=== PATIENT | female | born 1950 | race Caucasian/White ===

== ENCOUNTER 2021-03-17 21:01 | Inpatient (IN) | payer MEDICARE ==
[~2021-03-17] VITALS: Ht 165.1 cm; Wt 81.6 kg
[2021-03-17] MEDS ORDERED: HALOPERIDOL LACTATE 5 MG/1 ML VIAL IM ONE (21:15)
[2021-03-17] MEDS ORDERED: diphenhydrAMINE 50 MG/1 ML VIAL IM ONE (21:15)
[2021-03-17] MEDS ORDERED: HALOPERIDOL LACTATE 5 MG/1 ML VIAL ONE (21:32)
[2021-03-17] MEDS ORDERED: diphenhydrAMINE 50 MG/1 ML VIAL ONE (21:32)
[2021-03-17] MEDS ORDERED: OMEP40CA21 PO (23:52)
[2021-03-17] MEDS ORDERED: CLON0.1T PO (23:52)
[2021-03-17] MEDS ORDERED: LOSA1TAB39 PO (23:52)
[2021-03-17] MEDS ORDERED: OXYC15TA2 PO (23:52)
[2021-03-17] MEDS ORDERED: QUET300T2 PO (23:52)
[2021-03-17] MEDS ORDERED: POTA10TA10 PO (23:52)
[2021-03-17] MEDS ORDERED: LEVO25TA9 PO (23:52)
[2021-03-17] MEDS ORDERED: FLUO20CA42 PO (23:52)
[2021-03-17] MEDS ORDERED: PANT40TA49 PO (23:52)
[2021-03-17] MEDS ORDERED: QUET100T PO (23:52)
[2021-03-17] MEDS ORDERED: [UNRECOGNIZED DRUG - OTHER] TOP (23:52)
[2021-03-17] MEDS ORDERED: OXYC10TA49 PO (23:52)
[2021-03-17] MEDS ORDERED: GABA-532 PO (23:52)
[2021-03-18] MEDS ORDERED: MAG HYDROX/AL HYDROX/SIMETH 30 ML LIQUID UDC PO PRN (00:30)
[2021-03-18] MEDS ORDERED: LORAZEPAM 1 MG TABLET PO PRN (00:30)
[2021-03-18] MEDS ORDERED: TEMAZEPAM 7.5 MG CAPSULE PO PRN (00:30)
[2021-03-18] MEDS ORDERED: MAGNESIUM HYDROXIDE 30 ML LIQUID UDC PO PRN (00:30)
[2021-03-18 00:45] VITALS: BP 145/84
[2021-03-18 09:38] VITALS: BP 146/81
[2021-03-18] MEDS ORDERED: OXYCODONE HCL 5 MG TABLET PO PRN ×2 (11:45)
[2021-03-18] MEDS: AMLODIPINE 5 MG TABLET PO SCH (12:24)
[2021-03-18 15:12] VITALS: BP 139/49
[2021-03-18] MEDS: GABAPENTIN 300 MG CAPSULE PO SCH (16:14)
[2021-03-18] MEDS ORDERED: GABAPENTIN 100 MG CAPSULE PO SCH (17:00)
[2021-03-18] MEDS ORDERED: Medication Not On Formulary EA (Oxycodone Hcl 20 MG) PO SCH (17:00)
[2021-03-18 20:30] VITALS: BP 137/79
[2021-03-18] MEDS: SERTRALINE HCL 50 MG TABLET PO SCH (20:56)
[2021-03-19] MEDS: PANTOPRAZOLE SODIUM 40 MG TABLET.DR PO SCH (06:53)
[2021-03-19] MEDS: LEVOTHYROXINE SODIUM 25 MCG TABLET PO SCH (06:53)
[2021-03-19 07:40] LABS: HEMATOCRIT 41.3 % (31.2-41.9); MEAN CORPUSCULAR HEMOGLOBIN 29.5 uug (24.7-32.8); MEAN CORPUSCULAR VOLUME 87.6 fL (75.5-95.3); PLATELET COUNT (AUTO) 351 K/uL (179-408)
[2021-03-19 07:49] VITALS: BP 176/76
[2021-03-19] MEDS: AMLODIPINE 5 MG TABLET PO SCH (08:06)
[2021-03-19 08:07] LABS: THYROID STIMULATING HORMONE 1.49 mIU/mL (0.358-3.740)
[2021-03-19] MEDS: SERTRALINE HCL 50 MG TABLET PO SCH (08:07)
[2021-03-19] MEDS: HYDROCHLOROTHIAZIDE 25 MG TABLET PO SCH (08:07)
[2021-03-19] MEDS: GABAPENTIN 300 MG CAPSULE PO SCH ×2 (08:07→16:13)
[2021-03-19] MEDS: LOSARTAN POTASSIUM 50 MG TABLET PO SCH (08:07)
[2021-03-19 08:22] LABS: BILIRUBIN,TOTAL 0.7 mg/dL (0.2-1.0); CREATININE 0.6 mg/dL (0.6-1.3); MAGNESIUM 1.6 mg/dL (1.8-2.4); POTASSIUM 3.1 mmol/L (3.5-5.1); TOTAL PROTEIN, SERUM 8.2 g/dL (6.4-8.2)
[2021-03-19 08:50] VITALS: BP 137/65
[2021-03-19] MEDS ORDERED: Medication Not On Formulary EA (Losartan/Hydrochlorothiazide (Losartan-Hctz 100-25 Mg Ta PO SCH (09:00)
[2021-03-19] MEDS ORDERED: Z GUARD REMEDY PASTE 57 GM TUBE TOP PRN (12:00)
[2021-03-19] MEDS ORDERED: POTASSIUM CHLORIDE 20 MEQ TAB.PRT.SR PO ONE (12:00)
[2021-03-19] MEDS ORDERED: MAGNESIUM OXIDE 400 MG TABLET PO ONE (12:00)
[2021-03-19 16:24] VITALS: BP 159/71
[2021-03-19 17:00] VITALS: BP 141/69
[2021-03-19] MEDS ORDERED: ONDANSETRON HCL 4 MG TABLET PO PRN (21:15)
[2021-03-19] MEDS: ATORVASTATIN 20 MG TABLET PO SCH (21:21)
[2021-03-20 07:30] VITALS: BP 156/83
[2021-03-20] MEDS: SERTRALINE HCL 50 MG TABLET PO SCH (09:40)
[2021-03-20] MEDS: AMLODIPINE 5 MG TABLET PO SCH (09:43)
[2021-03-20] MEDS: GABAPENTIN 300 MG CAPSULE PO SCH ×2 (09:44→16:43)
[2021-03-20] MEDS: LOSARTAN POTASSIUM 50 MG TABLET PO SCH (09:47)
[2021-03-20] MEDS: LEVOTHYROXINE SODIUM 25 MCG TABLET PO SCH (09:52)
[2021-03-20] MEDS: PANTOPRAZOLE SODIUM 40 MG TABLET.DR PO SCH (09:52)
[2021-03-20] MEDS: HYDROCHLOROTHIAZIDE 25 MG TABLET PO SCH (09:57)
[2021-03-20 16:00] VITALS: BP 167/85
[2021-03-20] MEDS ORDERED: IPRATROPIUM BROMIDE 12.9 GM INHALER INH SCH (16:00)
[2021-03-20] MEDS: ALBUTEROL SULFATE 2.5 MG/3 ML NEBU NEB PRN ×2 (16:14→16:17)
[2021-03-20] MEDS ORDERED: IPRATROPIUM BROMIDE 0.5 MG/2.5 ML NEBU NEB PRN (16:15)
[2021-03-20] MEDS: ACETAMINOPHEN 325 MG TABLET PO PRN (19:30)
[2021-03-20 20:00] VITALS: BP 182/87
[2021-03-20] MEDS: ATORVASTATIN 20 MG TABLET PO SCH (20:37)
[2021-03-20] MEDS: CLONIDINE HCL 0.1 MG TABLET PO PRN (23:12)
[2021-03-21 01:06] VITALS: BP 154/83
[2021-03-21] MEDS: LEVOTHYROXINE SODIUM 25 MCG TABLET PO SCH (06:08)
[2021-03-21] MEDS: PANTOPRAZOLE SODIUM 40 MG TABLET.DR PO SCH (06:08)
[2021-03-21 07:30] VITALS: BP 174/87
[2021-03-21] MEDS: AMLODIPINE 5 MG TABLET PO SCH (09:51)
[2021-03-21] MEDS: LOSARTAN POTASSIUM 50 MG TABLET PO SCH (09:51)
[2021-03-21] MEDS: GABAPENTIN 300 MG CAPSULE PO SCH ×2 (09:51→16:53)
[2021-03-21] MEDS: SERTRALINE HCL 100 MG TABLET PO SCH (09:51)
[2021-03-21] MEDS: HYDROCHLOROTHIAZIDE 25 MG TABLET PO SCH (09:52)
[2021-03-21 16:56] VITALS: BP 156/82
[2021-03-21 20:10] VITALS: BP 159/83
[2021-03-21] MEDS: ACETAMINOPHEN 325 MG TABLET PO PRN (20:21)
[2021-03-21] MEDS: ATORVASTATIN 20 MG TABLET PO SCH (20:21)
[2021-03-21] MEDS: CLONIDINE HCL 0.1 MG TABLET PO PRN (20:22)
[2021-03-22] MEDS: PANTOPRAZOLE SODIUM 40 MG TABLET.DR PO SCH (06:47)
[2021-03-22] MEDS: LEVOTHYROXINE SODIUM 25 MCG TABLET PO SCH (06:48)
[2021-03-22 07:41] VITALS: BP 145/89
[2021-03-22] MEDS: AMLODIPINE 5 MG TABLET PO SCH (08:17)
[2021-03-22] MEDS: SERTRALINE HCL 100 MG TABLET PO SCH (08:17)
[2021-03-22] MEDS: GABAPENTIN 300 MG CAPSULE PO SCH ×2 (08:17→16:37)
[2021-03-22] MEDS: LOSARTAN POTASSIUM 50 MG TABLET PO SCH (08:19)
[2021-03-22] MEDS: HYDROCHLOROTHIAZIDE 25 MG TABLET PO SCH (08:20)
[2021-03-22 16:01] VITALS: BP 148/80
[2021-03-22 19:53] VITALS: BP 127/59
[2021-03-22] MEDS: ATORVASTATIN 20 MG TABLET PO SCH (21:37)
[2021-03-23] MEDS: LEVOTHYROXINE SODIUM 25 MCG TABLET PO SCH ×2 (07:00→07:01)
[2021-03-23] MEDS: PANTOPRAZOLE SODIUM 40 MG TABLET.DR PO SCH ×2 (07:00→07:01)
[2021-03-23 08:13] VITALS: BP 151/80
[2021-03-23 08:37] LABS: HEMATOCRIT 45.3 % (31.2-41.9); MEAN CORPUSCULAR HEMOGLOBIN 29.6 uug (24.7-32.8); MEAN CORPUSCULAR VOLUME 88.9 fL (75.5-95.3); PLATELET COUNT (AUTO) 455 K/uL (179-408)
[2021-03-23] MEDS: HYDROCHLOROTHIAZIDE 25 MG TABLET PO SCH ×2 (08:43→09:00)
[2021-03-23] MEDS: LOSARTAN POTASSIUM 50 MG TABLET PO SCH ×2 (08:43→09:58)
[2021-03-23] MEDS: AMLODIPINE 5 MG TABLET PO SCH (08:44)
[2021-03-23] MEDS: GABAPENTIN 300 MG CAPSULE PO SCH ×3 (08:44→16:55)
[2021-03-23] MEDS: SERTRALINE HCL 100 MG TABLET PO SCH ×2 (08:44→09:59)
[2021-03-23 08:50] LABS: BILIRUBIN,TOTAL 0.5 mg/dL (0.2-1.0); CREATININE 0.6 mg/dL (0.6-1.3); TOTAL PROTEIN, SERUM 8.1 g/dL (6.4-8.2)
[2021-03-23 09:00] LABS: POTASSIUM 2.5 mmol/L (3.5-5.1)
[2021-03-23] MEDS ORDERED: POTASSIUM CHLORIDE 20 MEQ TAB.PRT.SR PO STA (09:12)
[2021-03-23] MEDS: POTASSIUM CHLORIDE 20 MEQ TAB.PRT.SR PO SCH ×2 (09:55→18:11)
[2021-03-23 16:43] VITALS: BP 166/107
[2021-03-23] MEDS: CLONIDINE HCL 0.1 MG TABLET PO PRN (16:56)
[2021-03-23] MEDS: GLUCERNA SHAKE VANILLA 237 ML CAN PO SCH (17:00)
[2021-03-23] MEDS: IPRATROPIUM BROMIDE 0.5 MG/2.5 ML NEBU NEB PRN (17:48)
[2021-03-23] MEDS: ALBUTEROL SULFATE 2.5 MG/3 ML NEBU NEB PRN (17:48)
[2021-03-23 19:55] VITALS: BP 173/93
[2021-03-23] MEDS ORDERED: AMLODIPINE 2.5 MG TABLET PO ONE (22:00)
[2021-03-23] MEDS ORDERED: HYDROCHLOROTHIAZIDE 25 MG TABLET PO ONE (22:00)
[2021-03-23] MEDS ORDERED: CLONIDINE HCL 0.1 MG TABLET PO ONE (22:00)
[2021-03-23] MEDS: ATORVASTATIN 20 MG TABLET PO SCH (22:38)
[2021-03-23] MEDS: ACETAMINOPHEN 325 MG TABLET PO PRN (22:38)
[2021-03-23] MEDS ORDERED: AMLODIPINE 5 MG TABLET ONE (23:27)
[2021-03-23] MEDS ORDERED: HYDROCHLOROTHIAZIDE 25 MG TABLET ONE (23:28)
[2021-03-24] MEDS: IPRATROPIUM BROMIDE 0.5 MG/2.5 ML NEBU NEB PRN ×2 (00:41→12:18)
[2021-03-24] MEDS: ALBUTEROL SULFATE 2.5 MG/3 ML NEBU NEB PRN ×2 (00:41→12:18)
[2021-03-24] MEDS: CLONIDINE HCL 0.1 MG TABLET PO PRN (01:36)
[2021-03-24 02:53] VITALS: BP 149/74
[2021-03-24] MEDS: LEVOTHYROXINE SODIUM 25 MCG TABLET PO SCH (06:28)
[2021-03-24] MEDS: PANTOPRAZOLE SODIUM 40 MG TABLET.DR PO SCH (06:28)
[2021-03-24 07:30] VITALS: BP 151/86
[2021-03-24 07:51] LABS: HEMATOCRIT 44.2 % (31.2-41.9); MEAN CORPUSCULAR HEMOGLOBIN 28.6 uug (24.7-32.8); MEAN CORPUSCULAR VOLUME 88.8 fL (75.5-95.3); PLATELET COUNT (AUTO) 385 K/uL (179-408)
[2021-03-24] MEDS: GLUCERNA SHAKE VANILLA 237 ML CAN PO SCH ×2 (08:00→16:34)
[2021-03-24 08:06] LABS: CREATININE 0.9 mg/dL (0.6-1.3); PHOSPHOROUS 4.1 mg/dL (2.5-4.9); POTASSIUM 3.4 mmol/L (3.5-5.1)
[2021-03-24 08:11] LABS: *BILIRUBIN,URIN 1+ (NEGATIVE); *BLOOD, URINE NEGATIVE (NEGATIVE); *CLARITY,URINE CLEAR (CLEAR); *COLOR,URINE YELLOW (YELLOW); *KETONES,URINE NEGATIVE (NEGATIVE); *UROBILINOGEN,URINE 0.2 E.U./dl (NORMAL); LEUKOCYTE ESTERASE ,URINE NEGATIVE (NEGATIVE); NITRITE, URINE NEGATIVE (NEGATIVE); PH,URINE 5.5 (5.0-8.0); UGLUCOSE NEGATIVE (NEGATIVE)
[2021-03-24] MEDS: HYDROCHLOROTHIAZIDE 25 MG TABLET PO SCH (08:47)
[2021-03-24] MEDS: AMLODIPINE 5 MG TABLET PO SCH (08:48)
[2021-03-24] MEDS: LOSARTAN POTASSIUM 50 MG TABLET PO SCH (08:48)
[2021-03-24] MEDS: GABAPENTIN 300 MG CAPSULE PO SCH ×2 (08:48→16:34)
[2021-03-24] MEDS: SERTRALINE HCL 100 MG TABLET PO SCH (08:48)
[2021-03-24] MEDS ORDERED: POTASSIUM CHLORIDE 20 MEQ TAB.PRT.SR PO ONE (10:00)
[2021-03-24 10:50] LABS: BACTERIA,URINE NONE SEEN /HPF (NONE SEEN); RBC,URINE 0-3 /HPF (0-3); SQUAMOUS EPITHELIAL CELL,UR FEW /HPF (NONE SEEN); WBC,URINE 0-3 /HPF (0-3)
[2021-03-24 10:51] LABS: URINE AMORPHOUS URATE MANY /HPF
[2021-03-24 15:24] VITALS: BP 108/49
[2021-03-24] MEDS ORDERED: PIPERACILLIN/TAZO 2.25 G in IV DEXTROSE 5% 50 ML IV SCH (18:15)
[2021-03-24 20:02] VITALS: BP 114/67
[2021-03-24] MEDS: ATORVASTATIN 20 MG TABLET PO SCH (20:11)
[2021-03-24] MEDS ORDERED: PIPERACILLIN SODIUM/TAZOBACTAM 3.375 G in IV DEXTROSE 5% 100 ML IV SCH (22:00)
[2021-03-24] MEDS ORDERED: POTASSIUM CHLORIDE 20 MEQ in IV LACTATED RINGERS SOLUTION 1,000 ML IV PRN (22:00)
[2021-03-25] MEDS ORDERED: TEMA7.5C PO (06:40)
[2021-03-25] MEDS ORDERED: LORA-259 PO (06:40)
[2021-03-25] MEDS ORDERED: MAGN400O6 PO (06:40)
[2021-03-25] MEDS ORDERED: AMLO5TAB4 PO (06:40)
[2021-03-25] MEDS ORDERED: ATOR20TA PO (06:40)
[2021-03-25] MEDS ORDERED: SERT100T PO (06:40)
[2021-03-25] MEDS ORDERED: MAG355OR18 PO (06:46)
[2021-03-25] MEDS ORDERED: LEVO25TA2 PO (06:46)
[2021-03-25] MEDS ORDERED: HYDR25TA4 PO (06:46)
== END 2021-03-24 21:08 | disposition short-term general hospital (02) | DRG 881 ==
LOC: ER 21:16 → GPS 03-18 00:06
PROVIDERS: ADMIT Psychiatry & Neurology Psychiatry; ATTEND Internal Medicine
DX: F32.9 Major depressive disorder, single episode, unspecified (principal); N17.0 Acute kidney failure with tubular necrosis; B18.2 Chronic viral hepatitis C; G93.41 Metabolic encephalopathy; J96.01 Acute respiratory failure with hypoxia; J69.0 Pneumonitis due to inhalation of food and vomit; R45.851 Suicidal ideations; E87.6 Hypokalemia; D72.829 Elevated white blood cell count, unspecified; E03.9 Hypothyroidism, unspecified; F25.9 Schizoaffective disorder, unspecified; K20.90 Esophagitis, unspecified without bleeding; K29.70 Gastritis, unspecified, without bleeding; Z20.822 Contact with and (suspected) exposure to COVID-19; I10 Essential (primary) hypertension
CPT/HCPCS: 36415; 71045; 83735; 84100; 84443; 85025; 87086; 94640; 94664; 97161; A4663; A6209; J1200; J1630; J2543; J3480; J3590; J7060; J7120; U0003

== ENCOUNTER 2021-03-24 21:40 | Inpatient (IN) | payer MEDICARE, BC ==
[~2021-03-24] VITALS: Ht 165.1 cm; Wt 81.6 kg
[~2021-03-24 21:40] MED LIST: CLON0.1T PO; FLUO20CA42 PO; GABA-532 PO; LEVO25TA9 PO; LOSA1TAB39 PO; OMEP40CA21 PO; OXYC10TA49 PO; OXYC15TA2 PO; PANT40TA49 PO; POTA10TA10 PO; [UNRECOGNIZED DRUG - OTHER] TOP
[2021-03-24 22:00] VITALS: BP 116/71
[2021-03-24] MEDS ORDERED: OXYCODONE HCL 5 MG TABLET PO PRN (22:00)
[2021-03-24] MEDS ORDERED: Z GUARD REMEDY PASTE 57 GM TUBE TOP PRN (22:15)
[2021-03-24] MEDS ORDERED: ACETAMINOPHEN 325 MG TABLET PO PRN (22:15)
[2021-03-24] MEDS ORDERED: ONDANSETRON 4 MG/2 ML VIAL IV PRN (22:15)
[2021-03-24] MEDS: IV NS 1000 ML 1,000 ML IV PRN (22:21)
--- NOTE | 2021-03-24 22:30 | NUR ---
PATIENT ADMITTED TO FLOOR VIA BED. ALERT TO SELF. NO S/S OF ANY PAIN OR DISCOMFORT. NO RESP. DISTRESS NOTED. H/L INTACT AND PATENT, NOTED TO RIGHT WRIST #22 GAUGE. SITTER AT BEDSIDE. ALL NEEDS ATTENDED. WILL CONTINUE TO MONITOR AND ASSESS.
[2021-03-24] MEDS ORDERED: CEFTRIAXONE /D5W 50ML IVPB **ER PYXIS IV ONE (22:41)
[2021-03-24] MEDS: CEFTRIAXONE 1 G in IV DEXTROSE 5% 50 ML IV SCH (23:01)
[2021-03-25] MEDS: IPRATROPIUM BROMIDE 0.5 MG/2.5 ML NEBU NEB SCH ×7 (00:35→23:33)
[2021-03-25] MEDS: ALBUTEROL SULFATE 2.5 MG/3 ML NEBU NEB SCH ×7 (00:35→23:33)
[2021-03-25 05:19] LABS: BILIRUBIN,TOTAL 0.4 mg/dL (0.2-1.0); MAGNESIUM 1.9 mg/dL (1.8-2.4); POTASSIUM 3.6 mmol/L (3.5-5.1); TOTAL PROTEIN, SERUM 7.3 g/dL (6.4-8.2)
[2021-03-25 05:22] LABS: HEMATOCRIT 42.9 % (31.2-41.9); MEAN CORPUSCULAR HEMOGLOBIN 28.9 uug (24.7-32.8); MEAN CORPUSCULAR VOLUME 90.1 fL (75.5-95.3); PLATELET COUNT (AUTO) 339 K/uL (179-408)
--- NOTE | 2021-03-25 06:22 | NUR ---
PATIENT ASLEEP. SLEPT WELL. SITTER AT BEDSIDE. VS WNL. IVF INFUSING WELL. CALL LIGHT IN REACH. ALL NEEDS ATTENDED. WILL CONTINUE TO MONITOR AND ASSESS.
[2021-03-25] MEDS: PANTOPRAZOLE SODIUM 40 MG TABLET.DR PO SCH (06:40)
[2021-03-25] MEDS ORDERED: TEMA7.5C PO (06:40)
[2021-03-25] MEDS ORDERED: LORA-259 PO (06:40)
[2021-03-25] MEDS ORDERED: SERT100T PO (06:40)
[2021-03-25] MEDS ORDERED: MAGN400O6 PO (06:40)
[2021-03-25] MEDS ORDERED: ATOR20TA PO (06:40)
[2021-03-25] MEDS ORDERED: AMLO5TAB4 PO (06:40)
[2021-03-25 06:41] VITALS: BP 134/71
[2021-03-25] MEDS ORDERED: LEVO25TA2 PO (06:46)
[2021-03-25] MEDS ORDERED: MAG355OR18 PO (06:46)
[2021-03-25] MEDS ORDERED: HYDR25TA4 PO (06:46)
--- NOTE | 2021-03-25 08:07 | NUR ---
Transfer Note: Patient will be transferred to medical floor due to acute bronchitis and pneumonia. Dr. Vang will continue the hold. Upon discharge patient will return home located at [address] [place] [id number]: ([phone]). Patients friend Sherwin ([phone]) is involved in patients care and will cook pickled meat pt upon discharge. Patient will follow-up with (Primary Doctor) Dr. Yo James [id number] [facility], [address] [place] [address] ([phone]) and will provide psychotropic medications.
[2021-03-25] MEDS ORDERED: PANTOPRAZOLE SODIUM 40 MG TABLET.DR PO SCH (09:00)
[2021-03-25] MEDS: POTASSIUM CHLORIDE 10 MEQ TAB.PRT.SR PO SCH (10:16)
[2021-03-25] MEDS: LOSARTAN POTASSIUM 50 MG TABLET PO SCH (10:16)
[2021-03-25] MEDS: CLONIDINE HCL 0.1 MG TABLET PO SCH (10:17)
[2021-03-25] MEDS: GABAPENTIN 100 MG CAPSULE PO SCH ×2 (10:17→16:50)
[2021-03-25] MEDS: FLUOXETINE HCL 20 MG CAPSULE PO SCH (10:17)
[2021-03-25] MEDS: LEVOTHYROXINE SODIUM 25 MCG TABLET PO SCH (10:17)
[2021-03-25] MEDS: GUAIFENESIN/DEXTROMETHORPHAN TAB.SR.12H PO SCH ×2 (10:20→21:30)
[2021-03-25] MEDS: DOXYCYCLINE HYCLATE IV 100 MG in IV DEXTROSE 5% 100 ML IV SCH ×2 (10:21→21:23)
[2021-03-25 21:55] VITALS: BP 130/71
[2021-03-25] MEDS: CEFTRIAXONE 1 G in IV DEXTROSE 5% 50 ML IV SCH (23:33)
[2021-03-26] MEDS: IPRATROPIUM BROMIDE 0.5 MG/2.5 ML NEBU NEB SCH ×6 (03:30→22:35)
[2021-03-26] MEDS: ALBUTEROL SULFATE 2.5 MG/3 ML NEBU NEB SCH ×6 (03:30→22:35)
[2021-03-26 04:35] VITALS: BP 171/86
--- NOTE | 2021-03-26 05:15 | NUR ---
Patient alert and verbally responsive. HOB elevated O2 at 2LPM via NC saturating good.Denies pain.No s/s of distress noted. Iv on right wrist noted infiltrated.Dc'd line and inserted new Iv line on left hand 22 g .Infused IV ATB as ordered.No a/r noted.Swab test done and specimen sent to lab.Patient moved to room 324 while awaiting for result.VSS.
[2021-03-26] MEDS: PANTOPRAZOLE SODIUM 40 MG TABLET.DR PO SCH (06:08)
[2021-03-26] MEDS: IV NS 1000 ML 1,000 ML IV PRN ×2 (06:08→20:52)
[2021-03-26 07:52] LABS: MEAN CORPUSCULAR HEMOGLOBIN 28.7 uug (24.7-32.8); PLATELET COUNT (AUTO) 383 K/uL (179-408)
--- NOTE | 2021-03-26 08:00 | NUR ---
RECEIVED CHANGE OF SHIFT REPORT. PT C/O BRONCHITIS, ON 2L O2 VIA NC, NO SIGNS OF DISTRESS. PT ON BED REST, IV ON THE LEFT HAND 22G. PT ON ISOLATION PENDING PUI, PENDING PCR RESULTS, WILL CONTINUE TO MONITOR.
[2021-03-26 08:21] LABS: BILIRUBIN,TOTAL 0.4 mg/dL (0.2-1.0); CREATININE 0.6 mg/dL (0.6-1.3); MAGNESIUM 1.6 mg/dL (1.8-2.4); PHOSPHOROUS 2.3 mg/dL (2.5-4.9); POTASSIUM 3.5 mmol/L (3.5-5.1); TOTAL PROTEIN, SERUM 7.9 g/dL (6.4-8.2)
[2021-03-26] MEDS: POTASSIUM CHLORIDE 10 MEQ TAB.PRT.SR PO SCH (09:26)
[2021-03-26] MEDS: GABAPENTIN 100 MG CAPSULE PO SCH ×2 (09:26→17:38)
[2021-03-26] MEDS: LEVOTHYROXINE SODIUM 25 MCG TABLET PO SCH (09:26)
[2021-03-26] MEDS: FLUOXETINE HCL 20 MG CAPSULE PO SCH (09:26)
[2021-03-26] MEDS: DOXYCYCLINE HYCLATE IV 100 MG in IV DEXTROSE 5% 100 ML IV SCH ×2 (09:26→20:52)
[2021-03-26] MEDS: GUAIFENESIN/DEXTROMETHORPHAN TAB.SR.12H PO SCH ×2 (09:27→21:00)
[2021-03-26] MEDS ORDERED: MAGNESIUM SULFATE/D5W 100 ML IV SCH (09:45)
[2021-03-26] MEDS: CLONIDINE HCL 0.1 MG TABLET PO SCH (09:59)
[2021-03-26] MEDS: LOSARTAN POTASSIUM 50 MG TABLET PO SCH (10:00)
[2021-03-26 12:00] VITALS: BP 129/81
[2021-03-26] MEDS: MAGNESIUM OXIDE 400 MG TABLET PO SCH ×2 (12:11→13:56)
[2021-03-26 16:00] VITALS: BP 152/85
[2021-03-26] MEDS ORDERED: NEUTRA PHOS PACKET PO ONE (16:00)
--- NOTE | 2021-03-26 17:27 | NUR ---
SPOKE TO FAMILY VIA PHONE CALL, GAVE UPDATES ON PT. FAMILT WOULD LIKE TO NOTIFIED OF PCR RESULTS WHEN RESULT IS AVAILABLE. [phone] RALPH .
[2021-03-26 20:40] VITALS: BP 163/89
[2021-03-26] MEDS ORDERED: GUAIFENESIN LA 600 MG TABLET.SA PO ONE (20:53)
[2021-03-26] MEDS ORDERED: hydrALAZINE HCL 10 MG TABLET PO PRN (21:30)
[2021-03-26] MEDS ORDERED: BENZONATATE 100 MG CAPSULE PO PRN (21:30)
[2021-03-26] MEDS: CEFTRIAXONE 1 G in IV DEXTROSE 5% 50 ML IV SCH (22:00)
[2021-03-27] MEDS: ALBUTEROL SULFATE 2.5 MG/3 ML NEBU NEB SCH ×6 (02:35→22:35)
[2021-03-27] MEDS: IPRATROPIUM BROMIDE 0.5 MG/2.5 ML NEBU NEB SCH ×6 (02:35→22:35)
[2021-03-27 04:35] VITALS: BP 169/93
--- NOTE | 2021-03-27 05:18 | NUR ---
Pt slept throughout the night. Denies pain or SOB. Titrated to 2L NC, tolerating well. No s/s of distress. Safety and comfort provided, will endorse to day shift.
[2021-03-27] MEDS: PANTOPRAZOLE SODIUM 40 MG TABLET.DR PO SCH (06:10)
[2021-03-27 06:24] LABS: HEMATOCRIT 43.4 % (31.2-41.9); MEAN CORPUSCULAR HEMOGLOBIN 29.7 uug (24.7-32.8); MEAN CORPUSCULAR VOLUME 89.7 fL (75.5-95.3); PLATELET COUNT (AUTO) 394 K/uL (179-408)
[2021-03-27 07:00] LABS: CARBON DIOXIDE 28 mmol/L (21-32); CHLORIDE 103 mmol/L (98-107); CREATININE 0.4 mg/dL (0.6-1.3); GLUCOSE 138 mg/dL (74-106); MAGNESIUM 1.5 mg/dL (1.8-2.4); PHOSPHOROUS 2.5 mg/dL (2.5-4.9); POTASSIUM 3.7 mmol/L (3.5-5.1); UREA NITROGEN, BLOOD 13 mg/dL (7-18)
--- NOTE | 2021-03-27 08:00 | NUR ---
Lethargic, easily aroused, opens eyes. O2 at 2L/NC with O2 sat of 99%. With bouts of productive cough, able to expectorate secretions. Refused to eat breakfast. IVF infusing
[2021-03-27] MEDS: GUAIFENESIN/DEXTROMETHORPHAN TAB.SR.12H PO SCH ×2 (09:18→20:35)
[2021-03-27] MEDS: DOXYCYCLINE HYCLATE IV 100 MG in IV DEXTROSE 5% 100 ML IV SCH ×2 (09:18→20:34)
[2021-03-27] MEDS: POTASSIUM CHLORIDE 10 MEQ TAB.PRT.SR PO SCH (09:19)
[2021-03-27] MEDS: GABAPENTIN 100 MG CAPSULE PO SCH ×2 (09:19→17:00)
[2021-03-27] MEDS: FLUOXETINE HCL 20 MG CAPSULE PO SCH (09:19)
[2021-03-27] MEDS: LEVOTHYROXINE SODIUM 25 MCG TABLET PO SCH (09:19)
[2021-03-27] MEDS: LOSARTAN POTASSIUM 50 MG TABLET PO SCH (09:49)
[2021-03-27] MEDS: CLONIDINE HCL 0.1 MG TABLET PO SCH (09:49)
[2021-03-27] MEDS: MAGNESIUM SULFATE/D5W 100 ML IV SCH ×2 (10:33→11:35)
--- NOTE | 2021-03-27 11:30 | NUR ---
Mg 1.5, Magnesium 2 gm given as ordered
[2021-03-27 12:00] VITALS: BP 135/81
--- NOTE | 2021-03-27 15:00 | NUR ---
Followed up PCR. No result yet
[2021-03-27 16:00] VITALS: BP 156/89
--- NOTE | 2021-03-27 18:00 | NUR ---
Aroused but still refused to eat meal. IVF infusing well.
[2021-03-27] MEDS: IV NS 1000 ML 1,000 ML IV PRN (18:23)
[2021-03-27 20:35] VITALS: BP 159/79
--- NOTE | 2021-03-27 21:48 | NUR ---
Awake alert and oriented 1-2 Patient lethargic but arousable. On 2L via nasal cannula, pulse ox 100% Repositioned for comfort. Admitted for bronchitis. PUI(+) PCR still pending. Rapid (-) Kept comfortable. Tolerated po meds well. Will monitor patient. IVF's NSS @75cc/hr infusing well. IV ABT given as scheduled. No ill effects noted. Incontinent of bowel and bladder. Kept clean and dry. (+) productive cough.
[2021-03-27] MEDS: CEFTRIAXONE 1 G in IV DEXTROSE 5% 50 ML IV SCH (22:49)
[2021-03-28] MEDS: ALBUTEROL SULFATE 2.5 MG/3 ML NEBU NEB SCH ×5 (02:35→19:43)
[2021-03-28] MEDS: IPRATROPIUM BROMIDE 0.5 MG/2.5 ML NEBU NEB SCH ×5 (02:35→19:43)
[2021-03-28 04:34] VITALS: BP 139/76
[2021-03-28] MEDS: PANTOPRAZOLE SODIUM 40 MG TABLET.DR PO SCH (06:14)
[2021-03-28 06:33] LABS: HEMATOCRIT 41.5 % (31.2-41.9); MEAN CORPUSCULAR HEMOGLOBIN 29.2 uug (24.7-32.8); MEAN CORPUSCULAR VOLUME 89.5 fL (75.5-95.3); PLATELET COUNT (AUTO) 369 K/uL (179-408)
[2021-03-28 06:49] LABS: CREATININE 0.5 mg/dL (0.6-1.3); POTASSIUM 3.5 mmol/L (3.5-5.1)
[2021-03-28 07:05] LABS: MAGNESIUM 1.7 mg/dL (1.8-2.4); PHOSPHOROUS 2.7 mg/dL (2.5-4.9)
[2021-03-28] MEDS: LOSARTAN POTASSIUM 50 MG TABLET PO SCH ×2 (09:00→09:15)
[2021-03-28] MEDS: GUAIFENESIN/DEXTROMETHORPHAN TAB.SR.12H PO SCH ×2 (09:00→09:04)
[2021-03-28] MEDS: GABAPENTIN 100 MG CAPSULE PO SCH ×3 (09:00→17:35)
[2021-03-28] MEDS: POTASSIUM CHLORIDE 10 MEQ TAB.PRT.SR PO SCH ×2 (09:00→09:03)
[2021-03-28] MEDS: CLONIDINE HCL 0.1 MG TABLET PO SCH ×2 (09:00→09:15)
[2021-03-28] MEDS: FLUOXETINE HCL 20 MG CAPSULE PO SCH ×2 (09:00→09:04)
[2021-03-28] MEDS: LEVOTHYROXINE SODIUM 25 MCG TABLET PO SCH ×2 (09:00→09:03)
[2021-03-28] MEDS: DOXYCYCLINE HYCLATE IV 100 MG in IV DEXTROSE 5% 100 ML IV SCH (09:09)
[2021-03-28] MEDS: IV NS 1000 ML 1,000 ML IV PRN (09:32)
[2021-03-28] MEDS: MAGNESIUM SULFATE/D5W 100 ML IV SCH ×2 (10:27→11:41)
[2021-03-28 11:50] VITALS: BP 167/88
[2021-03-28] MEDS: hydrALAZINE HCL 20 MG/1 ML VIAL IV PRN ×2 (12:05→18:33)
[2021-03-28] MEDS ORDERED: AMOX-427 PO (12:49)
[2021-03-28 16:16] VITALS: BP 170/83
[2021-03-28] MEDS ORDERED: ENSURE ENLIVE (VAN) 240 ML LIQUID PO SCH (17:00)
[2021-03-28 18:33] VITALS: BP 162/86
--- NOTE | 2021-03-28 20:39 | NUR ---
Discharged patient to [facility]. AOx1, confused. On 1L O2 via NC. No signs of acute distress. Patient denies SOB/ . Patient denies SI/ HI. Belongings accounted for. Discharge documents given to ambulance crew to relay to receiving facility. IV access removed. ID armband removed. Patient left via ambulance transport [facility].
== END 2021-03-28 20:25 | DRG 177 ==
LOC: TELE3 21:40 → MEDSURG3 22:00
PROVIDERS: ADMIT Student in an Organized Health Care Education/Training Program; ATTEND Student in an Organized Health Care Education/Training Program
DX: J69.0 Pneumonitis due to inhalation of food and vomit (principal); N17.0 Acute kidney failure with tubular necrosis; J96.01 Acute respiratory failure with hypoxia; G93.41 Metabolic encephalopathy; E87.1 Hypo-osmolality and hyponatremia; E44.1 Mild protein-calorie malnutrition; R45.851 Suicidal ideations; B18.2 Chronic viral hepatitis C; E03.9 Hypothyroidism, unspecified; E86.1 Hypovolemia; F32.9 Major depressive disorder, single episode, unspecified; I10 Essential (primary) hypertension; J40 Bronchitis, not specified as acute or chronic
CPT/HCPCS: 36415; 70030-TC; 71045; 83735; 84100; 85025; 87040; 94640; 97161; G0378; J0360; J0696; J3475; J3490; J3590; J7030; J7060; U0003